=== PATIENT | female | born 1950 | race Caucasian/White ===

== ENCOUNTER 2016-08-13 11:52 | Emergency (ER) | payer MEDICARE ==
[2016-08-13 12:49] LABS: BASO % 0.1 % (0.1-1.2); EOS % 0.2 % (0.7-5.8); GRAN # 10.8 10_X3_uL (1.6-6.1); GRAN % 83.3 % (34.0-71.1); HEMOGLOBIN 11.9 g/dL (11.2-15.7); LYMPH # 1.1 10_X3_uL (1.2-3.7); LYMPH % 8.6 % (19.3-51.7); MEAN CORPUSCULAR HEMOGLOBIN 28.9 pg (27.0-33.0); MEAN CORPUSCULAR VOLUME 82.5 fL (79-95); MONO % 7.8 % (4.7-12.5); PLATELET COUNT 206 x10_3/uL (182-369); RED BLOOD COUNT 4.12 x10_6/uL (3.9-5.2); RED CELL DISTRIBUTION WIDTH 14.9 % (11.7-14.4); WHITE BLOOD COUNT 12.9 x10_3/uL (4.0-10.0)
[2016-08-13 12:55] LABS: URINE BILIRUBIN NEGATIVE (NEGATIVE); URINE BLOOD TRACE (NEGATIVE); URINE GLUCOSE (UA) NORMAL (NORMAL); URINE KETONE NEGATIVE (NEGATIVE); URINE LEUKOCYTE ESTERASE NEGATIVE (NEGATIVE); URINE NITRATE NEGATIVE (NEGATIVE); URINE PROTEIN 1+ (NEGATIVE); UROBILINOGEN NORMAL mg/dL (<1.0)
[2016-08-13 12:56] LABS: URINE AMORPHOUS SEDIMENT 2+; URINE BACTERIA TRACE (NONE SEEN); URINE RBC RARE /[HPF] (0-2); URINE SQUAMOUS EPITHELIAL CELL 0-10 /[HPF] (NONE SEEN); URINE WBC RARE /[HPF] (0-5)
[2016-08-13 13:09] LABS: ALBUMIN 4.1 gm/dL (3.4-5.0); BILIRUBIN,TOTAL 0.36 mg/dL (0.0-1.0); CALCIUM 8.6 mg/dL (8.7-10.7); CREATININE 5.4 mg/dL (0.6-1.3); POTASSIUM 3.5 mmol/L (3.5-5.1); TOTAL PROTEIN 6.2 gm/dL (6.4-8.2)
== END 2016-08-13 18:08 | disposition short-term general hospital (02) ==
LOC: ER 11:52
PROVIDERS: Internal Medicine
DX: N17.9 Acute kidney failure, unspecified (principal); R53.1 Weakness; I10 Essential (primary) hypertension; Z79.899 Other long term (current) drug therapy
CPT/HCPCS: 36415; 80053; 80307; 81001; 82550; 82553; 83690; 85025; 93005; 96360; 96361; 99070; 99284; 99285-25

== ENCOUNTER 2016-11-16 11:49 | Emergency (ER) | payer MEDICARE ==
[2016-11-16 12:16] LABS: BASO % 0.1 % (0.1-1.2); EOS % 0.1 % (0.7-5.8); GRAN # 8.7 10_X3_uL (1.6-6.1); GRAN % 82.3 % (34.0-71.1); HEMOGLOBIN 8.2 g/dL (11.2-15.7); LYMPH # 1.3 10_X3_uL (1.2-3.7); LYMPH % 12.3 % (19.3-51.7); MEAN CORPUSCULAR HEMOGLOBIN 28.4 pg (27.0-33.0); MEAN CORPUSCULAR HGB CONC 32.8 g/dL (32.0-36.0); MEAN CORPUSCULAR VOLUME 86.5 fL (79-95); MEAN PLATELET VOLUME 9.8 fl (7.5-11.5); MONO # 0.6 10_X3_uL (0.2-0.9); MONO % 5.2 % (4.7-12.5); PLATELET COUNT 288 x10_3/uL (182-369); RED BLOOD COUNT 2.89 x10_6/uL (3.9-5.2); RED CELL DISTRIBUTION WIDTH 14.8 % (11.7-14.4); WHITE BLOOD COUNT 10.6 x10_3/uL (4.0-10.0)
[2016-11-16 12:27] LABS: ALBUMIN 3.6 gm/dL (3.4-5.0); ALKALINE PHOSPHATASE 95 U/L (50-136); ALT/SGPT 10 U/L (3.5-33.9); AMYLASE 53 U/L (15.62-74.58); AST/SGOT 10 U/L (7.04-26.96); BILIRUBIN,TOTAL 0.17 mg/dL (0.0-1.0); BLOOD UREA NITROGEN 19 mg/dL (7-18); CALCIUM 9.6 mg/dL (8.7-10.7); CARBON DIOXIDE 21 mmol/L (21-32); CREATININE 0.8 mg/dL (0.6-1.3); GLUCOSE,RANDOM 108 mg/dL (70-99); LIPASE 54 U/L (6.75-60.75); POTASSIUM 4.1 mmol/L (3.5-5.1); SODIUM 131 mmol/L (136-145); TOTAL PROTEIN 6.3 gm/dL (6.4-8.2)
== END 2016-11-16 15:40 | disposition home or self-care (01) ==
LOC: ER 11:49
PROVIDERS: General Practice
DX: K44.9 Diaphragmatic hernia without obstruction or gangrene (principal); R10.11 Right upper quadrant pain; R10.12 Left upper quadrant pain; D64.9 Anemia, unspecified; N28.1 Cyst of kidney, acquired; R11.2 Nausea with vomiting, unspecified; R19.7 Diarrhea, unspecified
CPT/HCPCS: 36415; 80053; 82150; 83690; 85025; 99070; 99284; 99284-25; J7040; Q9967